=== PATIENT | male | born 2000 | race American Indian/Alaskan Native ===

== ENCOUNTER 2019-04-29 18:58 | Emergency (ER) | payer SELFPAY ==
[2019-04-29 20:47] VITALS: BP 152/102
== END 2019-04-30 00:45 | disposition left against medical advice (07) ==
LOC: ED 18:58
DX: R25.2 Cramp and spasm (principal); Z53.21 Procedure and treatment not carried out due to patient leaving prior to being seen by health care provider

== ENCOUNTER 2019-04-30 12:08 | Emergency (ER) | payer SELFPAY ==
[2019-04-30] MEDS ORDERED: IBUPROFEN 600 MG TAB PO ONE (13:27)
--- NOTE | 2019-04-30 13:27 | Emergency Department Report ---
Chief Complaint: Back Pain/Injury Stated Complaint: PULLED SHOULDER/BACK Time Seen by Provider: 04/30/19 13:24 - HPI History of Present Illness: 18 y/o male p/w right shoulder pain and right groin pain walks with a steady gait has full rom will need exam on stretcher to evaluate anatomy and musculature ok for fast track MSE screening note: Focused history and physical exam performed. Due to findings the following was ordered: ED Disposition for MSE Condition: Stable
[2019-04-30 13:28] VITALS: BP 140/83
--- NOTE | 2019-04-30 16:39 | Emergency Department Report ---
Chief Complaint: Back Pain/Injury Stated Complaint: PULLED SHOULDER/BACK Time Seen by Provider: 04/30/19 13:24 - Exam Vital Signs: Vital Signs 04/30/19 13:26 Temperature 98.0 F Pulse Rate 70 Respiratory 18 Rate Blood Pressure 140/83 O2 Sat by Pulse 100 Oximetry MSE screening note: Focused history and physical exam performed. Due to findings the following was ordered: ED Disposition for MSE Disposition: MED SCREENING EXAM-LEFT Condition: Stable Instructions: Muscle Strain (ED) Additional Instructions: Start taking Motrin, Tylenol, or Excedrin to manage pain. It is okay for you to apply ice or heat for 20 minutes on and up to one hour off and repeat. Follow up with the primary care doctor from the list that I am providing you below in the referral section. Return to the emergency room with worsening symptoms as discussed on visit. Referrals: ENZO SAUCEDA MD [Primary Care Provider] - 3-5 Days [facility] [Outside] - 3-5 Days [facility] [Outside] - 3-5 Days Forms: Work/School Release Form(ED) Time of Disposition: 16:36
== END 2019-04-30 16:42 | disposition left against medical advice (07) ==
LOC: ED 12:08
DX: M54.5 Low back pain (principal)
CPT/HCPCS: 99282

== ENCOUNTER 2019-05-22 12:47 | Emergency (ER) | payer SELFPAY ==
[2019-05-22 14:26] VITALS: BP 134/79
--- NOTE | 2019-05-22 14:27 | Event Note ---
ED Screening Note Date of service: 05/22/19 Time: 14:27 ED Screening Note: 18 Y O MALE PRESENTS TO ED CC OF MULSE STRAIN TO LEFT INNER THIGH X 1 WEEK AGO STATES HE HAS BEEN TAKING MOTRIN AND APPLYING HEAT WITH SOME RELIEF DENIES FALL, INJURUY EXTREMITIES/MUSCULOSKELETAL: No cyanosis, clubbing, rash, lesions or edema. Full ROM bilaterally. UE/LE Pulses 2+ bilaterally. LE and UE 5+ strength bilaterally, straight leg raise negative bilaterally NEUROLOGIC: The patient is cooperative with no focal neurologic deficits. Cranial nerves II through XII are grossly intact. Normal speech. Normal sensation Initial orders include: Pt presents with a non-medical emergency Examination is normal, Vital sign are stable Pt given information for clinics to follow up with pcp for further treatment and evaluation Also discussed strict return precautions in detail with pt who verbalized understanding
== END 2019-05-22 15:15 | disposition left against medical advice (07) ==
LOC: ED 12:47
DX: S39.011A Strain of muscle, fascia and tendon of abdomen, initial encounter (principal); Z53.21 Procedure and treatment not carried out due to patient leaving prior to being seen by health care provider; X58.XXXA Exposure to other specified factors, initial encounter; Y93.89 Activity, other specified; Y92.89 Other specified places as the place of occurrence of the external cause; Y99.8 Other external cause status

== ENCOUNTER 2020-08-26 18:36 | Emergency (ER) | payer SELFPAY ==
[2020-08-26 19:35] VITALS: BP 131/92
--- NOTE | 2020-08-26 20:40 | XRay Report ---
RIGHT ANKLE 3 VIEW(S) INDICATION / CLINICAL INFORMATION: R ankle pain, "twisted ankle playing basketball" COMPARISON: None available. FINDINGS: BONES / JOINT(S): No acute fracture or subluxation. No significant arthritis. SOFT TISSUES: No significant abnormality. ADDITIONAL FINDINGS: None. Signer Name: Tommy Lawton MD Signed: 08/26/2020 8:36 PM Workstation Name: [id number]
--- NOTE | 2020-08-26 21:05 | Emergency Department Report ---
ED General Adult HPI - General Chief complaint: Extremity Injury, Lower Stated complaint: RIGHT ANKLE INJURY Time Seen by Provider: 08/26/20 20:23 Source: patient Mode of arrival: Ambulatory Limitations: No Limitations - History of Present Illness Initial comments: 19-year-old male patient presents emergency department with complaints of traumatic right ankle pain starting today. Patient states he was playing basketball when he jumped for a layup and twisted his right ankle when he landed. There was no resulting head injury or loss of consciousness. Patient has been unable to bear weight since the injury. No history of prior injuries to the right ankle. No medication prior to arrival. Patient applied ice packs to the affected area prior to arrival. Denies hip pain, knee pain, foot pain, paresthesias, numbness, skin color changes. Denies all other complaints at this time. - Related Data Previous Rx's Medication Instructions Recorded Last Taken Type Naproxen 500 mg PO BID #20 tablet 08/26/20 Unknown Rx Allergies Allergy/AdvReac Type Severity Reaction Status Date / Time No Known Allergies Allergy Verified 04/29/19 19:14 ED Review of Systems ROS: Stated complaint: RIGHT ANKLE INJURY Other details as noted in HPI Other: CARDIOVASCULAR: Negative for chest pain. PULMONARY: Negative for dyspnea. GASTROINTESTINAL: Negative for abdominal pain. MUSCULOSKELETAL: Positive for right ankle pain. NEUROLOGICAL: Negative for headache. INTEGUMENTARY: Negative for ecchymosis. ED Past Medical Hx - Past Medical History Previous Medical History?: No - Surgical History Past Surgical History?: No - Social History Smoking Status: Never Smoker Substance Use Type: None - Medications Home Medications: Home Medications Medication Instructions Recorded Confirmed Last Taken Type Naproxen 500 mg PO BID #20 tablet 08/26/20 Unknown Rx ED Physical Exam - General Limitations: No Limitations - Other Other exam information: General: Awake, appropriately interactive, no acute distress. Neck: Supple. Full range of motion intact. Cardiovascular: Normal peripheral perfusion. Pulmonary: No respiratory distress. Patient is speaking normally without use of accessory muscles. Skin: No apparent rashes or lesions. Neurological: No facial asymmetry. Speech is clear. Follows commands. Patient is alert and oriented. Musculoskeletal: Tenderness to palpation along the right medial malleolus without obvious deformity or dislocation. No plantar ecchymosis. No tenderness along the distribution of the navicular bone or the base of the fifth metatarsal. Perry test is negative. Distal neurovascular and motor/sensory function intact. Psych: Cooperative. Appropriate mood and affect. ED Course Vital Signs 08/26/20 19:28 Temperature 98.5 F Pulse Rate 96 H Respiratory 18 Rate Blood Pressure 131/92 O2 Sat by Pulse 100 Oximetry ED Medical Decision Making - Medical Decision Making Differential diagnosis including but not limited to: sprain, strain, fracture, contusion, dislocation, Achilles tendon injury On reevaluation, patient remained stable. Repeat neurovascular exam remains intact. X-rays without acute process. History and exam findings suggestive of soft tissue injury; no clinical indication for further diagnostic work-up on an emergent basis at this time. Patient will be discharged home with crutches, Mychal wrap, appropriate analgesics, and referral to orthopedics for close outpatient follow-up. Patient expressed understanding and is agreeable to plan of care. RICE precautions discussed. Strict return precautions provided. Repeat exam is unremarkable and benign. History, exam, diagnostic testing, and current condition do not suggest worrisome pathology to warrant further testing, continued ED treatment, admission, or surgical evaluation at this point. Given the low probability of a significant medical illness, it would be more likely to result in harm than benefit to perform further testing at this stage. Discussed findings, presumptive diagnosis, need for follow-up and specific signs/symptoms that should prompt immediate return to the emergency department. Instructions were explained in detail to the patient in addition to giving written discharge information. Patient expressed understanding and was given the opportunity to ask questions, all of which were satisfactorily answered prior to discharge home. Critical care attestation.: If time is entered above; I have spent that time in minutes in the direct care of this critically ill patient, excluding procedure time. ED Disposition Clinical Impression: Right ankle sprain Qualifiers: Encounter type: initial encounter Involved ligament of ankle: unspecified ligament Qualified Code(s): S93.401A - Sprain of unspecified ligament of right ankle, initial encounter Disposition: TO HOME OR SELFCARE Is pt being admited?: No Does the pt Need Aspirin: No Condition: Stable Instructions: Ankle Sprain Additional Instructions: Take Tylenol every 4 hours as needed for pain. Take Naprosyn twice daily with food as needed for pain Wear Mychal wrap as directed. Use crutches as needed. Apply ice to affected area as needed for pain/swelling. Keep right ankle elevated as often as possible to reduce swelling. Follow-up with Dr. Yu, orthopedics, this week. Call tomorrow to schedule an appointment. See referral information below. Return to the emergency department immediately for new or worsening symptoms. Prescriptions: Naproxen 500 mg PO BID #20 tablet Referrals: GINGER YU MD [Staff Physician] - 3-5 Days Time of Disposition: 21:04
== END 2020-08-26 22:00 | disposition home or self-care (01) ==
LOC: ED 18:36
DX: S93.401A Sprain of unspecified ligament of right ankle, initial encounter (principal); Z79.899 Other long term (current) drug therapy; X50.1XXA Overexertion from prolonged static or awkward postures, initial encounter; Y93.89 Activity, other specified; Y92.89 Other specified places as the place of occurrence of the external cause; Y99.8 Other external cause status